=== PATIENT | female | born 1980 | race Caucasian/White ===

== ENCOUNTER 2019-01-26 02:43 | Emergency (ER) | payer SELFPAY ==
[2019-01-26] VITALS (35 sets, daily range): BP systolic 97–118; BP diastolic 52–67; PULSE 64–88; RESP 16–20; TEMP 36.5–36.8; O2SAT 91–97
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
[2019-01-26 03:25] LABS: Abs Immature Grans 0.06 k/cumm (0.0-0.09); Absolute Basophil Count 0.07 k/cumm (0.0-0.2); Absolute Eosinophil Count 0.19 k/cumm (0.0-0.7); Absolute Monocyte Count 0.85 k/cumm (0.11-0.7); Absolute Neutrophil Count 3.28 k/cumm (1.2-6.7); Eosinophils % 2.6; HCT 39.8 % (36.0-46.0); HGB 13.6 g/dL (12.0-15.5); Immature Grans % 0.8; Lymphocytes % 39.5; Mean Corp. HGB Concentration 34.2 g/dL (32.0-36.0); Mean Corpuscular Hemoglobin 28.6 pg (27.0-33.0); Mean Corpuscular Volume 83.8 fL (80-95); Mean Platelet Volume 9.8 fL (8.0-11.0); Monocytes % 11.6; Neutrophils % 44.5; Platelet Count 206 x1000/uL (130-400); RBC 4.75 m/cumm (4.00-5.20); RBC Distribution Width 14.3 % (11.7-14.6); White Blood Cell Count 7.35 k/cumm (4.4-10.8)
[2019-01-26 03:37] LABS: ALT 53 U/L (12-78); AST 30 U/L (15-37); Albumin 3.8 g/dL (3.4-5.0); Alkaline Phosphatase 32 U/L (46-116); Anion Gap 11.5 mmol/L (3-11); BUN 13 mg/dL (7-18); Bilirubin, Total 0.3 mg/dL (0.2-1.0); CO2 28.5 mmol/L (21.0-32.0); CREATININE 1.19 mg/dL (0.55-1.02); Calcium 8.6 mg/dL (8.5-10.1); Chloride 101 mmol/L (98-107); Estimated GFR 51.33 (mL/min/1.73m2); Glucose 117 mg/dL (70-100); Magnesium 1.9 mg/dL (1.8-2.4); Sodium 141 mmol/L (136-145); Total Protein 7.2 g/dL (6.4-8.2)
[2019-01-26] MEDS: Omnipaque 350 MG/ML 100 ML BTL IJ (03:38)
[2019-01-26 03:40] LABS: Potassium 2.6 mmol/L (3.5-5.1)
--- NOTE | 2019-01-26 03:40 | DI.CT_ITS ---
SYMPTOM/DIAGNOSIS: CHEST AND BACK PAIN, HYPERTENSION CTA CHEST AND ABDOMEN: CT angiography was performed with multi slice acquisition and multi planar and 3D reconstruction. CHEST: There is pulsation artifact present in the pulmonary arteries but no evidence of a pulmonary embolus is seen. The thoracic aorta is of normal caliber. No aneurysm or dissection is seen. There is pulsation artifact present. Heart size is within normal limits. No significant pericardial effusion is seen. No evidence of right ventricular dysfunction is present. No evidence of thoracic adenopathy, pleural effusion or pneumothorax is identified. The lung hillman are clear. The bones are intact. IMPRESSION: No acute thoracic abnormality. No evidence of pulmonary embolus, thoracic aortic aneurysm or dissection. ABDOMEN: The liver is normal in size. No suspicious hepatic mass is seen. The portal, superior mesenteric and splenic veins appear patent. The gallbladder is negative. There is no biliary ductal dilatation. The pancreas, spleen and adrenal glands are unremarkable as are the kidneys and ureters. The bowel is unremarkable. No significant abdominal ascites, adenopathy or pneumoperitoneum is present. The abdominal aorta is of normal caliber. No evidence of dissection or aneurysm is present. The celiac axis and superior and inferior mesenteric arteries are unremarkable. The renal arteries are unremarkable. No acute osseous abnormality is identified. IMPRESSION: No acute abnormality in the abdomen.
[2019-01-26 03:41] LABS: Troponin I < 0.05 ng/mL (0.00-0.06)
[2019-01-26] MEDS: Normal Saline 1,000 ML 125 ML IV (03:55)
[2019-01-26] MEDS: POTASSIUM CHLORIDE 20 MEQ/100 ML BAG 50 MEQ (03:56)
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
[2019-01-26 04:06] LABS: PTT Activated 24.1 sec (21.0-31.4); Prothrombin Time 10.4 sec (9.3-11.0)
[2019-01-26] MEDS: Ketorolac 15 MG/ML VIAL IVP (04:15)
[2019-01-26 06:24] LABS: Troponin I < 0.05 ng/mL (0.00-0.06)
== END 2019-01-26 06:39 | disposition home or self-care (01) ==
PROVIDERS: Emergency Provider Emergency Medicine
DX: R07.9 Chest pain, unspecified (principal); E87.6 Hypokalemia; V18.0XXA Pedal cycle driver injured in noncollision transport accident in nontraffic accident, initial encounter; Y93.55 Activity, bike riding; I10 Essential (primary) hypertension
CPT/HCPCS: 36415; 71275; 74175; 80053; 93005; 96361; 96365; 96375; 99285; 83735; 84484; 85025; 85610; 85730; 93010; J1885; J3480; J3490